=== PATIENT | female | born 1945 | race American Indian/Alaskan Native ===

== ENCOUNTER 2021-07-24 00:14 | Emergency (ER) | payer MEDICARE ==
[2021-07-24 00:28] VITALS: BP 158/100
[2021-07-24 01:09] LABS: Basophils % (Auto) 0.4 % (0.0-1.8); Eosinophils # (Auto) 0.3 K/mm3 (0.0-0.4); Hematocrit 38.5 % (30.3-42.9); Hemoglobin 12.7 gm/dl (10.1-14.3); Lymphocytes # (Auto) 2.9 K/mm3 (1.2-5.4); Lymphocytes % (Auto) 31.2 % (13.4-35.0); Mean Corpuscular HGB Conc 33 % (30-34); Mean Corpuscular Volume 78 fl (79-97); Monocytes # (Auto) 0.6 K/mm3 (0.0-0.8); Platelet Count 340 K/mm3 (140-440); Red Blood Count 4.94 M/mm3 (3.65-5.03); Red Cell Distribution Width 14.1 % (13.2-15.2)
[2021-07-24 01:12] LABS: Alanine Aminotransferase 18 units/L (7-56); Albumin 4.1 g/dL (3.9-5); BUN/Creatinine Ratio 19; Blood Urea Nitrogen 17 mg/dL (7-17); Calcium 10.2 mg/dL (8.4-10.2); Hemolysis Index 2
--- NOTE | 2021-07-24 01:58 | Emergency Department Report ---
ED N/V/D HPI - General Chief complaint: Nausea/Vomiting/Diarrhea Stated complaint: VOMITING/DIARRHEA Time Seen by Provider: 07/24/21 02:00 Source: patient Mode of arrival: Stretcher Limitations: No Limitations - History of Present Illness Initial comments: This 76-year-old female presents to the emergency department for evaluation of nausea vomiting and diarrhea which started during the day yesterday. The patient denies vomiting blood and states that her stool is not bloody or black. She denies fever chills and any close contact with anyone with similar symptoms. She is currently not experiencing nausea. The patient denies lightheadedness headache or chest pain. She also denies any abdominal pain at this time but states that occasionally there is some cramping. MD complaint: nausea, vomiting, diarrhea -: This afternoon - Related Data Previous Rx's Medication Instructions Recorded Last Taken Type Ondansetron [Zofran Odt] 4 mg PO Q8HR #10 tab.rapdis 07/24/21 Unknown Rx Allergies Allergy/AdvReac Type Severity Reaction Status Date / Time No Known Allergies Allergy Unverified 07/24/21 00:28 ED Review of Systems ROS: Stated complaint: VOMITING/DIARRHEA Other details as noted in HPI Comment: All other systems reviewed and negative Constitutional: denies: chills, diaphoresis, fever, malaise, weakness Eyes: denies: eye pain, eye discharge, vision change Respiratory: denies: cough, shortness of breath, wheezing Cardiovascular: denies: chest pain, palpitations Gastrointestinal: abdominal pain (Described as a cramping and is intermittent), nausea, vomiting, diarrhea. denies: hematemesis, hematochezia Genitourinary: denies: urgency, dysuria, discharge Musculoskeletal: denies: back pain, joint swelling, arthralgia Skin: denies: rash, lesions Neurological: denies: headache, weakness, paresthesias Psychiatric: denies: anxiety, depression Hematological/Lymphatic: denies: easy bleeding, easy bruising ED Past Medical Hx - Past Medical History Previous Medical History?: Yes Hx Hypertension: Yes Hx Diabetes: Yes - Surgical History Past Surgical History?: No - Social History Smoking Status: Never Smoker Substance Use Type: None - Medications Home Medications: Home Medications Medication Instructions Recorded Confirmed Last Taken Type Ondansetron [Zofran Odt] 4 mg PO Q8HR #10 tab.rapdis 07/24/21 Unknown Rx ED Physical Exam - General Limitations: No Limitations General appearance: alert, in no apparent distress - Head Head exam: Present: atraumatic - Eye Eye exam: Present: normal appearance, PERRL, EOMI - ENT ENT exam: Present: normal exam, mucous membranes moist - Neck Neck exam: Present: normal inspection. Absent: tenderness, meningismus - Respiratory Respiratory exam: Present: normal lung sounds bilaterally. Absent: respiratory distress - Cardiovascular Cardiovascular Exam: Present: regular rate, normal rhythm, normal heart sounds. Absent: systolic murmur, diastolic murmur, rubs, gallop - GI/Abdominal GI/Abdominal exam: Present: soft, normal bowel sounds. Absent: distended, tenderness - Rectal Rectal exam: Present: deferred - Extremities Exam Extremities exam: Present: normal inspection - Back Exam Back exam: Present: normal inspection, full ROM - Neurological Exam Neurological exam: Present: alert, oriented X3 - Psychiatric Psychiatric exam: Present: normal affect, normal mood - Skin Skin exam: Present: warm, dry, intact, normal color. Absent: rash ED Course Vital Signs 07/24/21 00:20 Temperature 98 F Pulse Rate 74 Respiratory 18 Rate Blood Pressure 158/100 O2 Sat by Pulse 100 Oximetry ED Medical Decision Making - Lab Data Result diagrams: 07/24/21 00:37 07/24/21 00:37 The patient's labs were reviewed and there are no significant abnormalities noted. She is currently asymptomatic. The current plan is to present the patient with a fluid challenge patient if she passes will result in her discharge from the emergency department with medications for any recurrent symptoms. - Medical Decision Making At the emergency department patient symptoms were noted to have resolved. She was observed for a period of time then given a fluid challenge p.o. There was no vomiting noted and the patient was subsequently discharged from the emergency department. She was asked to follow-up with her primary care physician and return to the ER if any problems Critical care attestation.: If time is entered above; I have spent that time in minutes in the direct care of this critically ill patient, excluding procedure time. ED Disposition Clinical Impression: Gastroenteritis Disposition: 01 HOME / SELF CARE / HOMELESS Is pt being admited?: No Does the pt Need Aspirin: No Condition: Stable Instructions: Viral Gastroenteritis, Adult, [id number]-Hhgr Prescriptions: Ondansetron [Zofran Odt] 4 mg PO Q8HR #10 tab.rapdis Referrals: ROYAL DELUCA MD [Primary Care Provider] - 3-5 Days
== END 2021-07-24 08:07 | disposition home or self-care (01) ==
LOC: ED 00:14
DX: K52.9 Noninfective gastroenteritis and colitis, unspecified (principal); I10 Essential (primary) hypertension; E11.8 Type 2 diabetes mellitus with unspecified complications
CPT/HCPCS: 36415; 80053; 83690; 85025; 99283

== ENCOUNTER 2021-09-02 20:00 | Emergency (ER) | payer MEDICARE ==
--- NOTE | 2021-09-02 20:12 | Event Note ---
Date: 09/02/21 Verbal report received from emergency medical services. EMS documentation not available at time of chart dictation Medical screening examination note: 76-year-old female, brought to the hospital by EMS, with an EMS articulated complaint of syncope, while patient is getting her hair done. Patient complains of generalized headache. Reportedly has a history of stroke with left-sided deficits. Patient is awake, alert, and moving 4 extremities. Obtain laboratory studies, EKG, noncontrast CT scan of the brain, detailed history and physical to be performed by oncoming ER provider, who will determine final and ultimate disposition.
--- NOTE | 2021-09-02 20:36 | XRay Report ---
CHEST 1 VIEW 09/02/2021 8:18 PM INDICATION / CLINICAL INFORMATION: Syncope. COMPARISON: None available. FINDINGS: SUPPORT DEVICES: None. HEART / MEDIASTINUM: No significant abnormality. LUNGS / PLEURA: No significant pulmonary or pleural abnormality. No pneumothorax. ADDITIONAL FINDINGS: No significant additional findings. IMPRESSION: 1. No acute findings. Signer Name: Sean Rubalcava MD Signed: 09/02/2021 8:31 PM Workstation Name: [id number]
[2021-09-02 21:24] LABS: Alanine Aminotransferase 10 units/L (7-56); Albumin 4.4 g/dL (3.9-5); BUN/Creatinine Ratio 14; Blood Urea Nitrogen 11 mg/dL (7-17); Calcium 9.8 mg/dL (8.4-10.2); Hemolysis Index 2
[2021-09-02 21:26] LABS: Basophils % (Auto) 0.5 % (0.0-1.8); Eosinophils # (Auto) 0.3 K/mm3 (0.0-0.4); Eosinophils % (Auto) 3.4 % (0.0-4.3); Hematocrit 34.2 % (30.3-42.9); Hemoglobin 11.2 gm/dl (10.1-14.3); Lymphocytes # (Auto) 2.6 K/mm3 (1.2-5.4); Lymphocytes % (Auto) 36.1 % (13.4-35.0); Mean Corpuscular HGB Conc 33 % (30-34); Mean Corpuscular Volume 77 fl (79-97); Monocytes # (Auto) 0.5 K/mm3 (0.0-0.8); Monocytes % (Auto) 6.1 % (0.0-7.3); Platelet Count 355 K/mm3 (140-440); Red Blood Count 4.46 M/mm3 (3.65-5.03)
[2021-09-02 21:33] LABS: INR 0.96 (0.87-1.13)
[2021-09-02] MEDS ORDERED: SODIUM CHLORIDE 0.9% 500 ML 500 ML IV ONE (22:21)
--- NOTE | 2021-09-02 22:43 | Emergency Department Report ---
ED Syncope HPI - General Stated Complaint: SYNCOPE Time Seen by Provider: 09/02/21 22:15 - History of Present Illness Initial Comments: Patient is a 76-year-old female brought in by EMS for evaluation of syncopal event. States she was at the hair salon in the chair when the event occurred. She denies any preceding symptoms other than a headache which she still endorses. She has a previous history of CVA. Timing/Prior Episodes: no prior history - Related Data Allergies/Adverse Reactions: Allergies No Known Allergies Allergy (Unverified 07/24/21 00:28) Home Medications: Ambulatory Orders Ondansetron [Zofran Odt] 4 mg PO Q8HR #10 tab.rapdis 07/24/21 ED Review of Systems ROS: Stated complaint: SYNCOPE Other details as noted in HPI Constitutional: denies: chills, fever Eyes: denies: eye pain, eye discharge, vision change Respiratory: denies: cough, shortness of breath, wheezing Cardiovascular: denies: chest pain, palpitations Endocrine: no symptoms reported Gastrointestinal: denies: abdominal pain, nausea, diarrhea Genitourinary: denies: urgency, dysuria, discharge Musculoskeletal: denies: back pain, joint swelling, arthralgia Skin: denies: rash, lesions Neurological: headache Psychiatric: denies: anxiety, depression ED Past Medical Hx - Past Medical History Hx Hypertension: Yes Hx Diabetes: Yes - Social History Smoking Status: Never Smoker Substance Use Type: None - Medications Home Medications: Home Medications Medication Instructions Recorded Confirmed Last Taken Type Ondansetron [Zofran Odt] 4 mg PO Q8HR #10 tab.rapdis 07/24/21 Unknown Rx ED Physical Exam - General Limitations: No Limitations General appearance: alert, in no apparent distress - Head Head exam: Present: atraumatic, normocephalic - Eye Eye exam: Present: normal appearance, PERRL, EOMI - Respiratory Respiratory exam: Present: normal lung sounds bilaterally. Absent: respiratory distress - Cardiovascular Cardiovascular Exam: Present: regular rate, normal rhythm. Absent: systolic mur mur, diastolic murmur, rubs, gallop - GI/Abdominal GI/Abdominal exam: Present: soft. Absent: distended, tenderness - Neurological Exam Neurological exam: Present: alert, oriented X3, CN II-XII intact - Psychiatric Psychiatric exam: Present: normal affect, normal mood - Skin Skin exam: Present: warm, dry, intact, normal color ED Course Vital Signs 09/02/21 09/02/21 09/03/21 22:26 23:45 00:39 Temperature 98.1 F Pulse Rate 82 88 Respiratory 13 17 19 Rate Blood Pressure 169/104 169/98 [Right] O2 Sat by Pulse 99 95 Oximetry 09/03/21 09/03/21 01:27 01:30 Temperature Pulse Rate 79 Respiratory 12 Rate Blood Pressure 185/107 [Right] O2 Sat by Pulse 98 99 Oximetry ED Medical Decision Making - Lab Data Result diagrams: 09/02/21 20:29 09/02/21 20:29 - Medical Decision Making No acute findings on CT head or chest x-ray. EKG shows sinus rhythm with ventricular rate of [address] changes or signs of ischemia. Vital signs are stable. On reassessment patient resting comfortably in bed. She is stable for discharge home with return precautions. Critical care attestation.: If time is entered above; I have spent that time in minutes in the direct care of this critically ill patient, excluding procedure time. ED Disposition Clinical Impression: Syncope Disposition: 01 HOME / SELF CARE / HOMELESS Is pt being admited?: No Does the pt Need Aspirin: No Condition: Stable Instructions: Syncope (ED), Syncope Time of Disposition: 01:41
[2021-09-02] MEDS ORDERED: ACETAMINOPHEN 325 MG TAB PO ONE (22:53)
--- NOTE | 2021-09-03 00:10 | Cat Scan Report ---
CT HEAD WITHOUT CONTRAST INDICATION / CLINICAL INFORMATION: syncope, headache. TECHNIQUE: All CT scans at this location are performed using CT dose reduction for ALARA by means of automated exposure control. COMPARISON: None available. FINDINGS: HEMORRHAGE: None. EXTRA-AXIAL SPACES: Moderately prominent likely related to cortical atrophy. VENTRICULAR SYSTEM: Moderately enlarged likely related to central atrophy. CEREBRAL PARENCHYMA: There are periventricular hypodensities consistent with microvascular ischemic c hange. No acute territorial infarct. MIDLINE SHIFT / HERNIATION: None. CEREBELLUM / BRAINSTEM: No significant abnormality. ORBITS: Normal as visualized SOFT TISSUES: No significant abnormality. SKULL: No significant abnormality. PARANASAL SINUSES / MASTOID AIR CELLS: Normal as visualized ADDITIONAL FINDINGS: None. IMPRESSION: 1. No acute intracranial abnormality setting of senescent changes. Signer Name: Tyler Suresh DO Signed: 09/03/2021 12:06 AM Workstation Name: [id number]
[2021-09-03 02:12] VITALS: BP 171/89
--- NOTE | 2021-09-03 09:47 | Electrocardiograph Report ---
[facility] Test Date: 2021-09-03 Test Time: 01:14:22 Pat Name: THIERRY WAGNER Department: Room: Gender: F [employer] Supervisor: ET : 1945 Requested By: PEEWEE MONGE Order Number: [id number] Reading MD: Travis Glover Measurements Intervals [place] Rate: 78 P: 56 KS: 169 QRS: -19 QRSD: 83 T: 49 QT: 391 QTc: 445 Interpretive Statements Sinus rhythm Probable left atrial enlargement Anteroseptal infarct, age indeterminate No previous ECG available for comparison Electronically Signed On 09-03-2021 9:47:14 EDT by Travis Glover
== END 2021-09-03 02:17 | disposition home or self-care (01) ==
LOC: ED 20:00
DX: R55 Syncope and collapse (principal); I10 Essential (primary) hypertension; E11.9 Type 2 diabetes mellitus without complications; Z79.899 Other long term (current) drug therapy
CPT/HCPCS: 36415; 70450; 71045; 80053; 82550; 83735; 84484; 85025; 85610; 93005; 99285; J7040